=== PATIENT | male | born 1990 | race Caucasian/White ===

== ENCOUNTER 2019-12-22 03:53 | Emergency (ER) | payer MEDICAID ==
[2019-12-22 03:59] VITALS: BP 159/103; PULSE 69; RESP 20; TEMP 97.5
--- NOTE | 2019-12-22 04:36 | XR ---
EXAM: XR Right Shoulder Complete, 2 or More Views CLINICAL HISTORY: ITS.REASON XR Reason: right shoulder pain due to fall TECHNIQUE: Two or more views of the right shoulder. COMPARISON: No relevant prior studies available. FINDINGS: Bones/joints: Lucency noted about the greater tuberosity of the humerus on AP external rotation view. Question acute nondisplaced fracture. Remote healed right clavicular fracture. No dislocation. Soft tissues: Unremarkable. IMPRESSION: Lucency noted about the greater tuberosity of the humerus on AP external rotation view. Question acute nondisplaced fracture.
--- NOTE | 2019-12-22 04:45 | ED ---
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 Patient noticed that he was then having pain. He does demonstrate the movements that make the pain worse, and he indicates internal rotation. No weakness or numbness of the extremity. MD Complaint: Injury to:: right, shoulder -: minutes(s) Other Extremity Injury: Shoulder: Right Other Injuries: none Handedness: right Place: work Improves With: none Worsens With: movement of extremity Context: fall Associated Symptoms: denies other symptoms - Related Data Allergies Allergy/AdvReac Type Severity Reaction Status Date / Time No Known Allergies Allergy Verified 12/22/19 03:59 Review of Systems ROS Statement: Those systems with pertinent positive or pertinent negative responses have been documented in the HPI. ROS Other: All systems not noted in ROS Statement are negative. Constitutional: Denies: fever, chills Respiratory: Denies: cough, dyspnea Cardiovascular: Denies: chest pain, palpitations Musculoskeletal: Reports: as per HPI, arthralgia, myalgia. Denies: back pain Skin: Denies: rash Neurological: Denies: weakness, numbness, paresthesias Past Medical History Past Medical History: Hyperlipidemia, Hypertension History of Any Multi-Drug Resistant Organisms: None Reported Past Surgical History: Appendectomy, Orthopedic Surgery Past Psychological History: No Psychological Hx Reported Smoking Status: Current every day smoker Past Alcohol Use History: Daily General Exam Limitations: no limitations General appearance: alert, in no apparent distress Respiratory exam: Present: normal lung sounds bilaterally. Absent: respiratory distress, wheezes, rales, rhonchi, stridor Cardiovascular Exam: Present: regular rate, normal rhythm, normal heart sounds. Absent: systolic murmur, diastolic murmur, rubs, gallop Right Shoulder Exam: Present: normal inspection. Absent: full ROM, tenderness, swelling, abrasion, laceration, ecchymosis, deformity, crepitus, dislocation, erythema, tenderness over AC joint Upper Arm exam: Present: normal inspection. Absent: full ROM, tenderness, swelling, abrasion, laceration, ecchymosis, deformity, crepidus, dislocation, erythema Elbow exam: Present: normal inspection, full ROM. Absent: tenderness, swelling, abrasion Forearm Wrist exam: Present: normal inspection, full ROM. Absent: tenderness, swelling, abrasion Hand Wrist exam: Present: normal inspection, full ROM. Absent: tenderness, swelling, abrasion, laceration Neuro motor exam: Present: wrist extension intact, thumb opposition intact Neurosensory exam: Present: 2-point discrimination, radial nerve intact, ulnar nerve intact, median nerve intact Vascular: Present: normal capillary refill Back exam: Absent: vertebral tenderness Neurological exam: Absent: motor sensory deficit Skin exam: Present: warm, dry, intact, normal color. Absent: rash Course Vital Signs 12/22/19 03:56 Temperature 97.5 F L Pulse Rate 69 Respiratory 20 Rate Blood Pressure 159/103 O2 Sat by Pulse 100 Oximetry Medical Decision Making - Medical Decision Making patient is 29-year-old man with injury sustained tonight when he caught himself or falling. There does appear to be some pain withuse of the infraspinatus. Discussed conservative therapy as well as appropriate follow-up and further ca re. No bony tenderness Disposition Clinical Impression: Right shoulder strain Disposition: HOME SELF-CARE Condition: Good Instructions (If sedation given, give patient instructions): Rotator Cuff Injury (ED) Additional Instructions: as we discussed, there is a possible nondisplaced fracture versus a tear in the muscle. Follow with occupational medicine to have orthopedic referral. Should any of the symptoms we discussed develop returnhere It is possible he may need to have MRI to further delineate the injury. No lifting over 10 pounds until cleared. Is patient prescribed a controlled substance at d/c from ED?: No Referrals: Daren Graf MD [Primary Care Provider] - 1-2 days Diogenes Redding DO [Doctor of Osteopathic Medicine] - 1-2 days
== END 2019-12-22 05:04 | disposition home or self-care (01) ==
LOC: EC 03:53
DX: S46.911A Strain of unspecified muscle, fascia and tendon at shoulder and upper arm level, right arm, initial encounter (principal); F17.200 Nicotine dependence, unspecified, uncomplicated; W18.40XA Slipping, tripping and stumbling without falling, unspecified, initial encounter; Y92.69 Other specified industrial and construction area as the place of occurrence of the external cause
CPT/HCPCS: 99283

== ENCOUNTER → 2023-01-09 | Outpatient (CLI) | payer MEDICAID ==
[2023-01-09 09:51] LABS: Basophils # (A) 0.06 X 10*3/uL (0.00-0.10); Eosinophils # (A) 0.07 X 10*3/uL (0.04-0.35); Eosinophils % (A) 1.1 %; HCT 44.4 % (39.6-50.0); HGB 15.8 g/dL (13.0-17.0); Lymphocytes # (A) 2.16 X 10*3/uL (0.90-5.00); Lymphocytes % (A) 34.5 %; MCH 32.4 pg (27.0-32.0); MCHC 35.6 g/dL (32.0-37.0); Mean Platelet Volume 12.2 FL (9.5-12.2); Monocytes # (A) 0.59 X 10*3/uL (0.20-1.00); Monocytes % (A) 9.4 %; NRBC Per 100 WBC 0 X 10*3/uL (0.00-0.01); Neutrophils # (A) 3.32 X 10*3/uL (1.80-7.70); Platelet Count 167 X 10*3/uL (140-440); RBC 4.88 X 10*6/uL (4.40-5.60); RDW 11.2 % (11.5-14.5); WBC 6.26 X 10*3/uL (4.50-10.00)
[2023-01-09 10:16] LABS: ALT 29 U/L (10-49); AST 29 U/L (14-35); Albumin/Globulin Ratio 2.17 Ratio (1.60-3.17); Alkaline Phosphatase 75 U/L (41-126); BUN/Creat Ratio 15.73 Ratio (12.00-20.00); Blood Urea Nitrogen 17.3 mg/dL (9.0-27.0); Calcium 10.5 mg/dL (8.7-10.3); Carbon Dioxide 28.4 mmol/L (21.6-31.8); Chloride 99 mmol/L (96-109); Chol/HDL Ratio 4.57 Ratio; Globulin 2.3 g/dL (1.6-3.3); Glucose 102 mg/dL (70-110); LDL Cholesterol,Calculated 134.1 mg/dL (0.0-131.0); Potassium 4.4 mmol/L (3.5-5.5); Sodium 138 mmol/L (135-145); Total Bilirubin 0.7 mg/dL (0.3-1.2); Total Protein 7.3 g/dL (6.2-8.2)
== END | disposition home or self-care (01) ==
LOC: LABMAIN 05:36
PROVIDERS: ATTEND Family Medicine
DX: F33.1 Major depressive disorder, recurrent, moderate (principal)
CPT/HCPCS: 80053; 80061; 84443; 85025